=== PATIENT | male | born 1955 | race Two or more races ===

== ENCOUNTER 2016-04-18 12:40 | Emergency (ER) | payer MEDICAID ==
[~2016-04-18] VITALS: Ht 170.2 cm; Wt 90.7 kg
[~2016-04-18 12:40] MED LIST: NORPTMEDS CO
[2016-04-18 13:01] VITALS: BP 130/83
[2016-04-18] MEDS ORDERED: TETANUS-DIPTH-ACEL PERTUSSIS 0.5ML SYRG IM ONE (13:30)
== END 2016-04-18 13:27 | disposition home or self-care (01) ==
LOC: ER 12:44
DX: S62.522D Displaced fracture of distal phalanx of left thumb, subsequent encounter for fracture with routine healing (principal); F17.210 Nicotine dependence, cigarettes, uncomplicated; Z98.890 Other specified postprocedural states; X58.XXXD Exposure to other specified factors, subsequent encounter
CPT/HCPCS: 90471; 90715

== ENCOUNTER 2016-12-11 11:07 | Emergency (ER) | payer MEDICAID ==
[~2016-12-11] VITALS: Ht 170.2 cm; Wt 88.5 kg
[2016-12-11 12:33] VITALS: BP 115/83
== END 2016-12-11 14:32 | disposition home or self-care (01) ==
LOC: ER 11:07
DX: T16.1XXA Foreign body in right ear, initial encounter (principal); F17.210 Nicotine dependence, cigarettes, uncomplicated; W19.XXXA Unspecified fall, initial encounter; Y93.89 Activity, other specified; Y99.8 Other external cause status; Y92.89 Other specified places as the place of occurrence of the external cause

== ENCOUNTER 2017-08-04 17:19 | Emergency (ER) | payer MEDICAID ==
[~2017-08-04] VITALS: Ht 170.2 cm; Wt 83.9 kg
[2017-08-04 22:57] VITALS: BP 137/84
[2017-08-04] MEDS ORDERED: HYDROcodone-ACET 5/325MG TAB PO ONE (23:15)
[2017-08-04] MEDS ORDERED: NITROGLYCERIN 0.4 MG SL TAB SL ONE (23:30)
[2017-08-05] MEDS ORDERED: TETANUS IMMUNE GLOBULIN 250 UNIT/ML SYRG IM ONE (00:15)
== END 2017-08-05 00:27 | disposition home or self-care (01) ==
LOC: ER 17:24
DX: S61.432A Puncture wound without foreign body of left hand, initial encounter (principal); F17.210 Nicotine dependence, cigarettes, uncomplicated; W22.8XXA Striking against or struck by other objects, initial encounter; Y93.89 Activity, other specified; Y99.8 Other external cause status; Y92.89 Other specified places as the place of occurrence of the external cause
CPT/HCPCS: 73130

== ENCOUNTER 2023-08-09 12:09 | Emergency (ER) | payer OTHER, MEDICAID ==
[~2023-08-09] VITALS: Ht 170.2 cm; Wt 86.8 kg
[2023-08-09 12:30] VITALS: BP 142/78; PULSE 82; RESP 16; O2SAT 96
== END 2023-08-09 14:15 | disposition left against medical advice (07) ==
LOC: ER 12:09
DX: H57.13 Ocular pain, bilateral (principal); Z53.21 Procedure and treatment not carried out due to patient leaving prior to being seen by health care provider